=== PATIENT | male | born 2000 | race Asian ===

== ENCOUNTER 2025-04-13 12:28 | Emergency (ER) | payer SELFPAY ==
[2025-04-13] MEDS ORDERED: Dexamethasone 10 MG/ML VIAL ONE (13:53)
[2025-04-13] MEDS ORDERED: Benzonatate 100 MG CAP ONE (14:56)
== END 2025-04-13 15:07 | disposition home or self-care (01) ==
LOC: ERS 12:28
DX: U07.1 COVID-19 (principal)
CPT/HCPCS: 71046; 87081; 87428; 87430; J1100; J7620